=== PATIENT | female | born 1940 ===

== ENCOUNTER 2022-01-22 14:35 | Inpatient (IN) | payer OTHER, MEDICAID ==
[~2022-01-22] VITALS: Ht 152.4 cm; Wt 64.7 kg
[2022-01-22] MEDS ORDERED: SODIUM CHLORIDE 0.9% 1,000 ML IVB ONE (15:30)
[2022-01-22 16:18] LABS: Basophils # (auto) 0 10 ^3/uL (0-0.2); Eosinophils # (auto) 0 10 ^3/uL (0-0.8); Hematocrit 45.5 % (36.0-46.0); Hemoglobin 14.5 g/dL (12.2-16.2); Lymphocytes # (auto) 0.5 10 ^3/uL (0.4-5.4); Lymphocytes % (auto) 3.7 % (10.0-50.0); Mean Corpuscular Hemoglobin 29.1 pg (28.0-32.0); Mean Corpuscular Hgb Conc. 31.9 g/dL (32.0-36.0); Mean Corpuscular Volume 91.3 fL (80.0-100.0); Monocytes # (auto) 1.1 10 ^3/uL (0-1.3); Monocytes % (auto) 8.8 % (0.0-12.0); Neutrophils # (auto) 11.3 10 ^3/uL (1.6-8.6); Neutrophils % (auto) 87.5 % (37.0-80.0); Nucleated Red Blood Cells % 0.1 %; Red Blood Cells 4.99 10^6/uL (4.0-5.20); Red Cell Distribution Width 15.2 % (11.8-14.3); White Blood Cell 12.9 10^3/uL (4.4-10.8)
[2022-01-22 16:34] LABS: Albumin 3.5 g/dL (3.4-5.0); Calcium 9.5 mg/dL (8.5-10.1); Potassium 3.2 mmol/L (3.5-5.1)
[2022-01-22 16:38] LABS: BUN/Creatinine Ratio 67.6; Bilirubin, Total 1.6 mg/dL (0.2-1.0); Total Protein 7.4 g/dL (6.4-8.2)
[2022-01-22] MEDS ORDERED: POTASSIUM CHL 20MEQ/100ML 100 ML IV ONE ×2 (17:00→18:15)
[2022-01-22] MEDS ORDERED: MORPHINE SULFATE INJ 2 MG/ml SYRG IV PRN (17:30)
[2022-01-22] MEDS ORDERED: NITROGLYCERIN 0.4 MG SL TAB SL PRN (17:30)
[2022-01-22] MEDS ORDERED: THIAMINE 100mg/ml INJ (200mg/2ml VIAL) IM ONE (18:00)
[2022-01-22] MEDS ORDERED: LACTATED RINGER'S 1,000 ML IV ONE (18:00)
[2022-01-22 19:47] LABS: Urine Bacteria FEW /hpf (None Seen); Urine Blood 2+ /uL (Negative); Urine Mucus MODERATE (None Seen); Urine Specific Gravity 1.027 (1.001-1.035); Urine WBC 449 /hpf (0 - 5); Urine WBC Clumps PRESENT /hpf (None Seen)
[2022-01-22] MEDS ORDERED: THIAMINE 100mg/ml INJ (200mg/2ml VIAL) IV ONE (20:30)
[2022-01-23] MEDS ORDERED: hydrALAZINE HCL 20 MG/ML VL IV ONE (01:15)
[2022-01-23 03:59] LABS: Basophils # (auto) 0 10 ^3/uL (0-0.2); Basophils % (auto) 0.1 % (0.0-2.0); Eosinophils # (auto) 0 10 ^3/uL (0-0.8); Eosinophils % (auto) 0.1 % (0.0-7.0); Hematocrit 39.4 % (36.0-46.0); Hemoglobin 13.1 g/dL (12.2-16.2); Lymphocytes # (auto) 0.7 10 ^3/uL (0.4-5.4); Lymphocytes % (auto) 8.5 % (10.0-50.0); Mean Corpuscular Hemoglobin 30.3 pg (28.0-32.0); Mean Corpuscular Hgb Conc. 33.3 g/dL (32.0-36.0); Mean Corpuscular Volume 90.9 fL (80.0-100.0); Monocytes # (auto) 0.9 10 ^3/uL (0-1.3); Monocytes % (auto) 11.2 % (0.0-12.0); Neutrophils # (auto) 6.8 10 ^3/uL (1.6-8.6); Neutrophils % (auto) 80.1 % (37.0-80.0); Nucleated Red Blood Cells % 0.1 %; Red Blood Cells 4.34 10^6/uL (4.0-5.20); White Blood Cell 8.5 10^3/uL (4.4-10.8)
[2022-01-23 04:10] LABS: Potassium 3.4 mmol/L (3.5-5.1)
[2022-01-23 04:21] LABS: Albumin 2.7 g/dL (3.4-5.0); Calcium 8.3 mg/dL (8.5-10.1)
[2022-01-23] MEDS ORDERED: cefTRIAXone 1GM/50ML D5W 50 ML IV ONE (09:45)
[2022-01-23] MEDS: ENOXAPARIN SOD 40 MG/0.4 ML SYRINGE SC SCH (10:59)
[2022-01-23] MEDS ORDERED: HYDROcodone-ACET 5/325MG TAB PO PRN (11:45)
[2022-01-23] MEDS: D5W 5% 1,000 ML IV SCH (15:02)
[2022-01-23 15:43] VITALS: BP 123/70
[2022-01-23 17:00] VITALS: BP 156/65
[2022-01-23 19:48] LABS: BUN/Creatinine Ratio 68.8; Calcium 8.6 mg/dL (8.5-10.1); Phosphorus 1.7 mg/dL (2.5-4.90); Potassium 3.4 mmol/L (3.5-5.1)
[2022-01-23] MEDS: SENNA 8.6 MG TAB PO SCH (21:58)
[2022-01-23] MEDS: hydrALAZINE HCL 20 MG/ML VL IV PRN (21:59)
[2022-01-24] VITALS: BP 125/59
[2022-01-24] MEDS: D5W 5% 1,000 ML IV SCH (04:03)
[2022-01-24 05:00] VITALS: BP 142/67
[2022-01-24 05:21] LABS: Hematocrit 40.1 % (36.0-46.0); Hemoglobin 13.1 g/dL (12.2-16.2); Mean Corpuscular Hemoglobin 29.9 pg (28.0-32.0); Mean Corpuscular Hgb Conc. 32.7 g/dL (32.0-36.0); Mean Corpuscular Volume 91.6 fL (80.0-100.0); Red Blood Cells 4.37 10^6/uL (4.0-5.20); Red Cell Distribution Width 15.2 % (11.8-14.3); White Blood Cell 6.8 10^3/uL (4.4-10.8)
[2022-01-24 05:40] LABS: BUN/Creatinine Ratio 51.9; Calcium 8.5 mg/dL (8.5-10.1); Potassium 3.2 mmol/L (3.5-5.1)
[2022-01-24 05:53] LABS: Band Neutrophils % (manual) 0; Basophils % (manual) 0 (0.0-2.0); Blast Cells 0; Eosinophils % (manual) 0 (0-7); Metamyelocytes % 0; Myelocytes % 0; Reactive Lymphocytes 0
[2022-01-24 08:45] LABS: Lymphocytes % (manual) 16 (10.0-50.0); Monocytes % (manual) 2 (0-12); Promyelocytes % 1
[2022-01-24 09:00] VITALS: BP 152/65
[2022-01-24] MEDS: cefTRIAXone 1GM/50ML D5W 50 ML IV SCH (09:13)
[2022-01-24] MEDS: ENOXAPARIN SOD 40 MG/0.4 ML SYRINGE SC SCH (09:13)
[2022-01-24] MEDS ORDERED: POTASSIUM PHOSPHATE 44 MEQ in D5W 5% 250 ML IV ONE (11:45)
[2022-01-24 13:00] VITALS: BP 156/67
[2022-01-24 16:42] VITALS: BP 129/61
[2022-01-24] MEDS: POTASSIUM CHLORIDE 20 MEQ in D5W 5% 1,000 ML IV SCH (16:55)
[2022-01-24] MEDS: SENNA 8.6 MG TAB PO SCH (21:03)
[2022-01-24 22:00] VITALS: BP 154/71
[2022-01-25] MEDS: POTASSIUM CHLORIDE 20 MEQ in D5W 5% 1,000 ML IV SCH ×2 (02:09→14:41)
[2022-01-25 05:00] VITALS: BP 146/80
[2022-01-25 05:47] LABS: BUN/Creatinine Ratio 52.5; Calcium 7.9 mg/dL (8.5-10.1); Magnesium 2.1 mg/dL (1.6-2.6); Phosphorus 2.6 mg/dL (2.5-4.90); Potassium 3.6 mmol/L (3.5-5.1)
[2022-01-25 09:00] VITALS: BP 173/76
[2022-01-25] MEDS: ENOXAPARIN SOD 40 MG/0.4 ML SYRINGE SC SCH (09:13)
[2022-01-25] MEDS: cefTRIAXone 1GM/50ML D5W 50 ML IV SCH (09:13)
[2022-01-25] MEDS ORDERED: CLOPIDOGREL BISULFATE 75 MG TAB PO ONE (11:15)
[2022-01-25 13:00] VITALS: BP 147/84
[2022-01-25 16:41] VITALS: BP 163/71
[2022-01-25 20:00] VITALS: BP 171/83
[2022-01-25 22:00] VITALS: BP 137/86
[2022-01-25] MEDS: SENNA 8.6 MG TAB PO SCH (22:00)
[2022-01-25] MEDS: ATORVASTATIN 20 MG TAB PO SCH (22:00)
[2022-01-26] VITALS (7 sets, daily range): BP systolic 121–171; BP diastolic 66–94
[2022-01-26] MEDS: POTASSIUM CHLORIDE 20 MEQ in D5W 5% 1,000 ML IV SCH ×3 (04:09→23:07)
[2022-01-26] MEDS: cefTRIAXone 1GM/50ML D5W 50 ML IV SCH (08:44)
[2022-01-26] MEDS: ENOXAPARIN SOD 40 MG/0.4 ML SYRINGE SC SCH (08:44)
[2022-01-26] MEDS: ASPirin 81 mg TAB PO SCH (08:44)
[2022-01-26] MEDS: hydrALAZINE HCL 20 MG/ML VL IV PRN ×2 (09:37→16:26)
[2022-01-26] MEDS ORDERED: CLOPIDOGREL BISULFATE 75 MG TAB PO SCH (10:00)
[2022-01-26] MEDS ORDERED: LEVO-28 PO (13:28)
[2022-01-26] MEDS: ATORVASTATIN 20 MG TAB PO SCH (21:37)
[2022-01-27 09:00] VITALS: BP 124/63
[2022-01-27] MEDS: ASPirin 81 mg TAB PO SCH (09:34)
[2022-01-27] MEDS: ENOXAPARIN SOD 40 MG/0.4 ML SYRINGE SC SCH (09:34)
[2022-01-27] MEDS: cefTRIAXone 1GM/50ML D5W 50 ML IV SCH (09:40)
[2022-01-27 13:00] VITALS: BP 120/66
[2022-01-27 17:00] VITALS: BP 128/59
[2022-01-27 22:56] VITALS: BP 145/69
== END 2022-01-27 22:29 | DRG 689 ==
LOC: ER 14:35 → EDBD 14:35 → TELE 17:26 → TELE-WESTW 01-23 13:37
PROVIDERS: ADMIT Registered Nurse; ATTEND Hospitalist
DX: N39.0 Urinary tract infection, site not specified (principal); G93.41 Metabolic encephalopathy; E87.0 Hyperosmolality and hypernatremia; E86.0 Dehydration; E88.09 Other disorders of plasma-protein metabolism, not elsewhere classified; E87.6 Hypokalemia; R73.03 Prediabetes; Z60.2 Problems related to living alone; S50.812A Abrasion of left forearm, initial encounter; Z20.822 Contact with and (suspected) exposure to COVID-19; W17.89XA Other fall from one level to another, initial encounter; R00.1 Bradycardia, unspecified; W18.39XA Other fall on same level, initial encounter; Y99.8 Other external cause status; Y93.A1 Activity, exercise machines primarily for cardiorespiratory conditioning; Y92.098 Other place in other non-institutional residence as the place of occurrence of the external cause; Z91.81 History of falling; B96.20 Unspecified Escherichia coli [E. coli] as the cause of diseases classified elsewhere
CPT/HCPCS: 36415; 70450; 71045; 73030; 73502; 80048; 80053; 81001; 82306; 82550; 82570; 83605; 83735; 83880; 83935; 83970; 84100; 84156; 84300; 85007; 85025; 85027; 87040; 87077; 87086; 87088; 87186; 93005; 93306; 93886; 96361; 96374; 97110; 97116; 97163; 97530; G0378; J0696; J3480; J7060